=== PATIENT | male | born 1970 | race Caucasian/White ===

== ENCOUNTER 2017-08-04 13:50 | Emergency (ER) | payer OTHER ==
--- NOTE | 2017-08-04 16:27 | ED Physician Documentation ---
History of Present Illness - Stated complaint Stated Complaint: L LEG CRAMPING/L ANKLE TENDERNESS - Chief complaint Chief Complaint: Ext Problem - History obtained from History obtained from: Patient - History of Present Illness Timing: How many days ago (3) - Additonal information Additional information: 47-year-old male noticed about 3 days ago the swelling to his left ankle. Swelling is over the left medial aspect of the ankle and he did not injure his ankle that he is aware. He is concerned about DVT as he has had a similar presentation with a DVT in the right side about 2 years ago. That precipitant was sinus surgery. He does not have any specifics precipitant today for a DVT. The only thing he can think of different than his usual as he is changed insoles in his shoes. He has also had a recent increase in his prednisone with some plantar fasciitis. Review of Systems Constitutional: denies: Fever Eyes: denies: Decreased vision Ears: denies: Ear pain Nose: denies: Congestion Throat: denies: Sore throat Cardiac: denies: Chest pain / pressure Respiratory: denies: Dyspnea, Cough GI: denies: Abdominal Pain, Nausea, Vomiting : denies: Dysuria, Frequency Skin: denies: Rash Musculoskeletal: reports: Extremity pain, Extremity swelling, Joint swelling, Pain with weight bearing. denies: Neck pain, Back pain Neurologic: denies: Generalized weakness, Focal weakness, Numbness PD PAST MEDICAL HISTORY - Past Medical History Past Medical History: Yes Respiratory: Asthma, Other Other Past Medical History: Chronic sinus disease - Past Surgical History Past Surgical History: Yes - Present Medications Home Medications: Ambulatory Orders Medication Instructions Recorded Confirmed Albuterol [Ventolin Hfa] 1 - 2 puffs PO Q4HR PRN 03/09/14 03/09/14 Fexofenadine [Ilsa] 180 mg PO DAILY 03/09/14 03/09/14 Itraconazole 1 tab CONNIE BID 03/09/14 03/09/14 Prednisone 2 tab PO DAILY 03/09/14 03/09/14 Amphoterisin 08/04/17 Budesonide 0.25 mg IH BID 08/04/17 08/04/17 Gentamicin Sulfate [Gentak] 5 ml OP 08/04/17 Rivaroxaban [Xarelto] 15 mg PO BID #42 tablet 08/04/17 - Allergies Allergies/Adverse Reactions: Allergies Allergy/AdvReac Type Severity Reaction Status Date / Time shellfish derived Allergy Respiratory Verified 08/04/17 14:17 - Social History Does the pt smoke?: No Smoking Status: Never smoker Does the pt drink ETOH?: No Does the pt have substance abuse?: No - Immunizations Immunizations are current?: Yes Immunizations: TDAP current <10years PD ED PE NORMAL - Vitals Vital signs reviewed: Yes (hypertensive) - General General: No acute distress, Well developed/nourished - HEENT HEENT: Atraumatic, PERRL, EOMI - Respiratory Respiratory: No respiratory distress - Derm Derm: Normal color, Warm and dry, No rash - Extremities Extremities: No deformity, Other (There is some mild swelling to the calf medially on the left side. The area is vaugley tender. ) - Neuro Neuro: No motor deficit, No sensory deficit Eye Opening: Spontaneous Motor: Obeys Commands Verbal: Oriented GCS Score: 15 - Psych Psych: Normal mood, Normal affect Results - Vitals Vitals: Vital Signs - 24 hr 08/04/17 14:12 Temperature 36.6 C Heart Rate 67 Respiratory 16 Rate Blood Pressure 134/90 H O2 Saturation 97 Oxygen O2 Source Room air - Labs Labs: Laboratory Tests 08/04/17 15:59 POC Whole Bld Glucose 103 H - Rads (name of study) venous doppler Radiology: Prelim report reviewed (Impression: No flow and noncompressible, mid to distal posterior tibial veins, compatible with calf DVT. Otherwise no evidence for deep venous thrombosis.), EMP read indepedently, See rad report PD MEDICAL DECISION MAKING - ED course Complexity details: reviewed results, re-evaluated patient, considered differential, d/w patient ED course: 47-year-old male with symptomatic left lower extremity distal DVT has had prior DVT requiring anticoagulation. That DVT was thought to be related to the insult of surgery. Today this DVT appears unprovoked. I discussed with the patient the importance of determining whether this is truly unprovoked and I have asked the patient to follow-up with hematology to consider lifetime anticoagulation. Today and here he is administered Xarelto 15 mg orally and we will put him on 15 twice daily for the first 3 weeks. Departure - Departure Disposition: 01 Home, Self Care Clinical Impression: Deep vein thrombosis Qualifiers: DVT location: lower extremity Affected thrombotic vein of extremity: unspecified lower extremity distal vein Chronicity: acute Laterality: left Qualified Code(s): I82.4Z2 - Acute embolism and thrombosis of unspecified deep veins of left distal lower extremity Condition: Stable Instructions: Rivaroxaban oral tablets, ED DVT Follow-Up: Yaya Klein DO [Primary Care Provider] - Prescriptions: Rivaroxaban [Xarelto] 15 mg PO BID #42 tablet Comments: Stop your itraconazole while you are on the xarolto at the twice per day dose
--- NOTE | 2017-08-04 17:55 | Ultrasound Preliminary Report ---
Exam: US DUPLEX EXT VEINS LEFT IMPRESSION: No flow and noncompressible, mid to distal posterior tibial veins, compatible with calf D VT. Otherwise no evidence for deep venous thrombosis. [facility] SITE ID: [id number]
[2017-08-04] MEDS ORDERED: RIVAROXABAN 15 MG TABLET PO STA (17:57)
--- NOTE | 2017-08-04 17:57 | Ultrasound Report ---
EXAM: LEFT LOWER EXTREMITY VENOUS ULTRASOUND EXAM DATE: 08/04/2017 05:15 PM. CLINICAL HISTORY: Left ankle pain and swelling. Prior DVT. COMPARISON: None. TECHNIQUE: Real-time sonographic vascular imaging was performed by the bilingual branch manager through the lower extremity utilizing both color-flow and Doppler spectral analysis. Multiple business office representative static braxton ges were saved for review. FINDINGS: Common Femoral Vein (CFV): Normal. CFV-GSV Junction: Normal. Profunda Femoral Vein (PFV): Normal. Femoral Vein (FV) Prox: Normal. Femoral Vein (FV) Mid: Normal. Femoral Vein (FV) Dist: Normal. Popliteal Vein: Normal. Posterior Tibial Veins: Noncompressible and lack of flow, mid to distal. Normal proximal. Peroneal Veins: Normal. Contralateral Side CFV: Normal. Other: None. IMPRESSION: No flow and noncompressible, mid to distal posterior tibial veins, compatible with calf D VT. Otherwise no evidence for deep venous thrombosis. [facility] Referring Provider Line: [phone] SITE ID: [id number]
[2017-08-04 18:34] VITALS: BP 139/96
== END 2017-08-04 18:33 | disposition home or self-care (01) ==
LOC: ED 13:50
DX: I82.4Z2 Acute embolism and thrombosis of unspecified deep veins of left distal lower extremity (principal); Z86.718 Personal history of other venous thrombosis and embolism
CPT/HCPCS: 93971; 99283; 99284; A9270

== ENCOUNTER 2017-08-07 11:01 | Emergency (ER) | payer OTHER ==
[2017-08-07 11:11] VITALS: BP 143/90
[2017-08-07 11:50] LABS: BASOPHILS % (AUTO) 0.3 %; EOSINOPHILS # (AUTO) 0.1 10^3/uL (0.0-0.7); EOSINOPHILS % (AUTO) 1.2 %; HCT - HEMATOCRIT 50.5 % (42.0-52.0); HGB - HEMOGLOBIN 17.3 g/dL (14.0-18.0); LYMPHOCYTES % (AUTO) 10.9 %; MEAN CORPUSCULAR HEMOGLOBIN 33.9 pg (27.0-31.0); MEAN CORPUSCULAR HGB CONC 34.2 g/dL (32.0-36.0); MEAN CORPUSCULAR VOLUME 99.1 fL (80.0-94.0); MEAN PLATELET VOLUME 8.5 fL (7.4-11.4); MONOCYTES # (AUTO) 0.6 10^3/uL (0.0-1.0); MONOCYTES % (AUTO) 6.5 %; NEUTROPHILS # (AUTO) 7.5 10^3/uL (1.5-6.6); NEUTROPHILS % (AUTO) 81.1 %; NUCLEATED RED BLOOD CELLS AUTO 0.1 /100WBC; RED CELL DISTRIBUTION WIDTH 13.2 % (12.0-15.0); UNCORRECTED WHITE BLOOD COUNT 9.3 x10^3/uL; WHITE BLOOD COUNT 9.3 x10^3/uL (4.8-10.8)
[2017-08-07 11:58] LABS: CALCIUM 9.2 mg/dL (8.5-10.3); CREATININE 1.1 mg/dL (0.6-1.2); POTASSIUM 3.8 mmol/L (3.5-5.0)
[2017-08-07 12:19] LABS: INR 1.6 (0.8-1.2); PT - PROTHROMBIN TIME 17.5 secs (9.9-12.6)
[2017-08-07 12:28] LABS: PARTIAL THROMBOPLASTIN TIME 32.5 secs (24.9-33.3)
--- NOTE | 2017-08-07 13:50 | ED Physician Documentation ---
PD HPI GI BLEED - Stated complaint Stated Complaint: BLOOD IN STOOL - Chief complaint Chief Complaint: Abd Pain - History obtained from History obtained from: Patient (Pt states that he is on Xaralto for treatment of a recent dx of LLE DVT (around his ankle) he reports that for the past couple days he has had diarrhea and bright red blood and some dark stools. He called his PCM who told him to come to the ER.) - History of Present Illness Timing - onset: Yesterday Review of Systems Constitutional: denies: Fever, Chills Throat: denies: Dental pain / toothache, Sore throat Cardiac: denies: Chest pain / pressure, Palpitations, Pedal edema Respiratory: denies: Cough GI: reports: Diarrhea, Bloody / black stool. denies: Abdominal Pain, Nausea, Vomiting, Constipation : denies: Dysuria, Frequency Skin: denies: Rash, Lesions, Laceration (s) Musculoskeletal: denies: Back pain Neurologic: denies: Generalized weakness, Difficulty speaking PD PAST MEDICAL HISTORY - Past Medical History Past Medical History: Yes Respiratory: Asthma, Other - Past Surgical History Past Surgical History: Yes - Present Medications Home Medications: Ambulatory Orders Medication Instructions Recorded Confirmed Albuterol [Ventolin Hfa] 1 - 2 puffs PO Q4HR PRN 03/09/14 03/09/14 Fexofenadine [Ilsa] 180 mg PO DAILY 03/09/14 03/09/14 Itraconazole 1 tab CONNIE BID 03/09/14 03/09/14 Prednisone 2 tab PO DAILY 03/09/14 03/09/14 Amphoterisin 08/04/17 Budesonide 0.25 mg IH BID 08/04/17 08/04/17 Gentamicin Sulfate [Gentak] 5 ml OP 08/04/17 Rivaroxaban [Xarelto] 15 mg PO BID #42 tablet 08/04/17 Esomeprazole Magnesium [Nexium] 10 mg PO DAILY #30 suspdr.pkt 08/07/17 - Allergies Allergies/Adverse Reactions: Allergies Allergy/AdvReac Type Severity Reaction Status Date / Time shellfish derived Allergy Respiratory Verified 08/07/17 11:11 - Social History Does the pt smoke?: No Smoking Status: Never smoker Does the pt drink ETOH?: No Does the pt have substance abuse?: No - Immunizations Immunizations are current?: Yes Immunizations: TDAP current <10years - POLST Patient has POLST: No PD ED PE NORMAL - Vitals Vital signs reviewed: Yes - General General: Alert and oriented X 3 - Cardiac Cardiac: RRR, No murmur - Respiratory Respiratory: No respiratory distress, Clear bilaterally - Abdomen Abdomen: Normal bowel sounds, Soft, Non tender, Non distended - Rectal Rectal: Other (Heme occult pos with control postitive) - Derm Derm: Normal color, Warm and dry, No rash - Extremities Extremities: No deformity - Neuro Neuro: Alert and oriented X 3 Eye Opening: Spontaneous Motor: Obeys Commands Verbal: Oriented GCS Score: 15 - Psych Psych: Normal mood, Normal affect Results - Vitals Vitals: Vital Signs - 24 hr 08/07/17 11:08 Temperature 36.8 C Heart Rate 70 Respiratory 20 Rate Blood Pressure 143/90 H O2 Saturation 100 Oxygen O2 Source Room air - Labs Labs: Laboratory Tests 08/07/17 08/07/17 08/07/17 11:38 11:38 11:38 WBC 9.3 RBC 5.10 Hgb 17.3 Hct 50.5 MCV 99.1 H MCH 33.9 H MCHC 34.2 RDW 13.2 Plt Count 157 MPV 8.5 Neut # 7.5 H Lymph # 1.0 L [place] # 0.6 Eos # 0.1 Baso # 0.0 Absolute Nucleated RBC 0.01 Nucleated RBC % 0.1 PT 17.5 H INR 1.6 H APTT 32.5 Sodium 135 Potassium 3.8 Chloride 101 Carbon Dioxide 26 Anion Gap 8.0 BUN 12 Creatinine 1.1 Estimated GFR (MDRD) 71 L Glucose 111 H Calcium 9.2 PD MEDICAL DECISION MAKING - ED course Complexity details: d/w patient ED course: Pt on Xaralto for treatment of a distal DVT. He is having rectal bleeding that he is asymptomatic from other than the blood in the stool. We discussed his options to include stopping the Xaralto to prevent further bleeding and possible increase in bleeding or to continue the medication and continued bleeding. We discussed that stopping the medication may cause the DVT to get worse. he expressed understanding. Will stop the medication and start on PPI and will have him follow up with his PCM. Departure - Departure Disposition: 01 Home, Self Care Clinical Impression: Rectal bleeding Deep vein thrombosis Qualifiers: DVT location: lower extremity Affected thrombotic vein of extremity: other lower extremity vein Chronicity: acute Laterality: left Qualified Code(s): I82.492 - Acute embolism and thrombosis of other specified deep vein of left lower extremity Condition: Good Instructions: ED Hematochezia Stable Follow-Up: Yaya Klein DO [Primary Care Provider] - Prescriptions: Esomeprazole Magnesium [Nexium] 10 mg PO DAILY #30 suspdr.pkt Comments: Stop the Xaralto and call your primary care provider for a follow up next week. Start the new medication today. Return to the ER for any new or worsening symptoms or continued bleeding.
== END 2017-08-07 14:00 | disposition home or self-care (01) ==
LOC: ED 11:01
DX: K92.1 Melena (principal); I82.492 Acute embolism and thrombosis of other specified deep vein of left lower extremity; Z79.01 Long term (current) use of anticoagulants; J45.909 Unspecified asthma, uncomplicated
CPT/HCPCS: 36415; 80048; 85025; 85610; 85730; 99283

== ENCOUNTER 2017-11-23 11:31 | Emergency (ER) | payer OTHER ==
--- NOTE | 2017-11-23 12:42 | XRAY Preliminary Report ---
Exam: XR CHEST 2 VIEW X-RAY IMPRESSION: Bilateral central airway thickening can be seen in the setting of bronchitis, acute or ch ronic. Reactive airways disease can have this appearance as well. No focal lung parenchymal consolida tion is seen to suggest superimposed pneumonia. [facility] SITE ID: [id number]
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
--- NOTE | 2017-11-23 13:25 | ED Physician Documentation ---
PD HPI URI - Stated complaint Stated Complaint: EYE REDNESS - Chief complaint Chief Complaint: General - History obtained from History obtained from: Patient - History of Present Illness Timing - onset: How many days ago (few) Timing duration: Days Timing details: Gradual onset (has had cough and nasal congestion with sinus drainage for few days, and now with both eyes feeling "on fire" with redness and discharge.) Associated symptoms: Nasal congestion, Sinus pain, Dry cough. No: Swollen nodes , Productive cough Contributing factors: Travel (returned from [facility] just yesterday). No: Sick contact, Immunocompromised Similar symptoms before: Has not had sx before Recently seen: Not recently seen Review of Systems Constitutional: reports: Myalgias. denies: Fever, Chills Eyes: reports: Discharge, Irritation. denies: Decreased vision, Photophobia Ears: denies: Ear pain Nose: reports: Congestion, Sinus pressure / pain Throat: denies: Sore throat Respiratory: reports: Cough GI: denies: Nausea, Vomiting, Diarrhea Skin: denies: Rash, Lesions PD PAST MEDICAL HISTORY - Past Medical History Respiratory: Asthma - Past Surgical History Past Surgical History: Yes - Present Medications Home Medications: Ambulatory Orders Medication Instructions Recorded Confirmed Albuterol [Ventolin Hfa] 1 - 2 puffs PO Q4HR PRN 03/09/14 03/09/14 Fexofenadine [Ilsa] 180 mg PO DAILY 03/09/14 03/09/14 Prednisone 2 tab PO DAILY 03/09/14 03/09/14 Budesonide 0.25 mg IH BID 08/04/17 08/04/17 Pantoprazole [Protonix] 1 tab PO DAILY 10/28/17 10/28/17 Warfarin Sodium [Coumadin] 7 mg PO DAILY 10/28/17 10/28/17 Albuterol Sulf [Ventolin Hfa 1 - 2 puffs INH Q4HR PRN #1 inhaler 11/23/17 Inhaler] Cephalexin [Keflex] 500 mg PO TID #21 capsule 11/23/17 Dexamethasone [Decadron] 4 mg PO DAILY #5 tablet 11/23/17 Fluconazole [Diflucan] 150 mg PO ONCE #2 tablet 11/23/17 Sulfacetamide 10% Ophth Drops 2 drops OPTH Q3H #1 bottle 11/23/17 [Sulfamide 10% Ophth Drops] - Allergies Allergies/Adverse Reactions: Allergies Allergy/AdvReac Type Severity Reaction Status Date / Time shellfish derived Allergy Respiratory Verified 08/07/17 11:11 - Social History Does the pt smoke?: No Smoking Status: Never smoker Does the pt drink ETOH?: Yes Does the pt have substance abuse?: No - Immunizations Immunizations are current?: No Immunizations: TDAP current <10years - POLST Patient has POLST: No PD ED PE NORMAL - Vitals Vital signs reviewed: Yes - General General: Alert and oriented X 3, Well developed/nourished - HEENT HEENT: PERRL, EOMI (with conjunctival redness and swelling both sides, with discharge thicker yellow. ), Pharynx benign, Other (sinus tenderness to percussion both maxillary sides. ) - Neck Neck: Supple, no meningeal sign, No adenopathy - Cardiac Cardiac: RRR, No murmur - Respiratory Respiratory: Clear bilaterally - Abdomen Abdomen: Soft, Non tender - Derm Derm: Normal color, Warm and dry, No rash Results - Vitals Vitals: Oxygen O2 Source Room air - Labs Labs: Laboratory Tests 11/23/17 13:59 Whole Blood INR 1.8 H PD MEDICAL DECISION MAKING - ED course Complexity details: considered differential (likely sinus infection extending up to eyes, consider bacterial vs. viral. Has very purulent nasal and eye drainage. ), d/w patient Departure - Departure Disposition: 01 Home, Self Care Clinical Impression: Upper respiratory infection Qualifiers: URI type: unspecified URI Qualified Code(s): J06.9 - Acute upper respiratory infection, unspecified Conjunctivitis Qualifiers: Conjunctivitis type: acute Acute conjunctivitis type: unspecified Laterality: bilateral Qualified Code(s): H10.33 - Unspecified acute conjunctivitis, bilateral Condition: Stable Record reviewed to determine appropriate education?: Yes Instructions: ED Upper Resp Infec Abx Tx, ED Conjunctivitis Nonspecific Follow-Up: Yaya Klein DO [Primary Care Provider] - Prescriptions: Albuterol Sulf [Ventolin Hfa Inhaler] 1 - 2 puffs INH Q4HR PRN #1 inhaler PRN Reason: Shortness Of Air/Wheezing Cephalexin [Keflex] 500 mg PO TID #21 capsule Dexamethasone [Decadron] 4 mg PO DAILY #5 tablet Fluconazole [Diflucan] 150 mg PO ONCE #2 tablet Sulfacetamide 10% Ophth Drops [Sulfamide 10% Ophth Drops] 2 drops OPTH Q3H #1 bottle Comments: This may potentially be all viral with the cough congestion and eyes red and irritated. Several types of viruses like to include the eyes as well. However would be concern for bacterial infection of the sinuses that could do this as well. Use Keflex antibiotic 3 times a day for a week and also sulfacetamide antibiotic eyedrops in both eyes every 3 the hours while awake for the next few days. Use albuterol inhaler 2 puffs 4 times a day for the next 7-10 days. Decadron steroid anti-inflammatory will help the irritation from the infection. Because of your tendency towards fungal infection as well, I would have you take an antifungal tablet once today and again repeated in for 5 days to treat that potential as well and also since that might blossom in response to the antibiotics. Recheck if not improving over the next few days. Continue your other usual medications. Discharge Date/Time: 11/23/17 14:19
[2017-11-23 14:06] VITALS: BP 143/86
== END 2017-11-23 14:19 | disposition home or self-care (01) ==
LOC: ED 11:31
DX: J06.9 Acute upper respiratory infection, unspecified (principal); H10.33 Unspecified acute conjunctivitis, bilateral; Z79.01 Long term (current) use of anticoagulants
CPT/HCPCS: 71046; 85610; 99283

== ENCOUNTER 2018-02-11 16:39 | Outpatient (CLI) | payer OTHER ==
--- NOTE | 2018-02-12 08:33 | Ultrasound Report ---
EXAM: LEFT LOWER EXTREMITY VENOUS ULTRASOUND EXAM DATE: 02/11/2018 06:12 PM. CLINICAL HISTORY: Left lower extremity deep venous thrombosis. COMPARISON: 08/04/2017. TECHNIQUE: Real-time sonographic vascular imaging was performed by the steamer operator through the lower extremity utilizing both color-flow and Doppler spectral analysis. Multiple account representative static braxton ges were saved for review. FINDINGS: Common Femoral Vein (CFV): Normal. CFV-GSV Junction: Normal. Profunda Femoral Vein (PFV): Normal. Femoral Vein (FV) Prox: Normal. Femoral Vein (FV) Mid: Normal. Femoral Vein (FV) Dist: Normal. Popliteal Vein: Normal. Posterior Tibial Veins: Normal. Previous calf vein thrombosis in this region appears resolved. Peroneal Veins: Normal. Contralateral Side CFV: Normal. Other: None. IMPRESSION: No evidence for deep venous thrombosis. [facility] Referring Provider Line: [phone] SITE ID: [id number]
== END 2018-02-11 16:40 | disposition home or self-care (01) ==
LOC: DI 16:39
PROVIDERS: ATTEND Internal Medicine
DX: I82.4Z2 Acute embolism and thrombosis of unspecified deep veins of left distal lower extremity (principal)

== ENCOUNTER 2019-01-21 12:58 | Outpatient (CLI) | payer OTHER ==
[2019-01-21] MEDS ORDERED: GADOBUTROL 15 MMOL/15 ML VIAL ONE (14:30)
[2019-01-21] MEDS ORDERED: GADOBUTROL 15 MMOL/15 ML VIAL IVP ONE (14:39)
--- NOTE | 2019-01-22 20:09 | MRI Report ---
Reason: GANGLION,LEFT HAND Procedure Date: 01/21/2019 Accession Number: [id number] / [id number] Procedure: MRI - Hand LT W/WO CPT Code: FULL RESULT: EXAM: LEFT HAND MRI WITHOUT AND WITH CONTRAST EXAM DATE: 01/21/2019 01:39 PM. CLINICAL HISTORY: Palpable "knot" at the base of the thumb. COMPARISON: None. TECHNIQUE: Multiplanar, multisequence T1-weighted and fluid-sensitive sequences of the hand before and after administration of intravenous contrast. IV contrast: . Other: None. FINDINGS: Image quality is degraded by patient motion Bones: There is mild first carpometacarpal osteoarthritis. Minimal first MCP osteoarthritis. No fracture or other acute osseous abnormality. Tendons: The visible flexor and extensor tendons are normal. Musculature: No edema or fatty atrophy. Other: There is a lobular homogeneously T2 hyperintense structure demonstrating faint peripheral enhancement along the ulnar margin of the mid to distal shaft of the first metacarpal consistent with a cyst, probably a ganglion cyst. It measures 1.6 x 1.1 x 0.9 cm in aggregate. The source for the cyst is difficult to definitively identify; however, there is a thin channel of fluid signal extending distally from the cyst to the first MCP joint which is felt to be the most likely source for the cyst. As the cyst abuts the extensor pollicis longus tendon, the extensor pollicis longus tendon sheath could also reflect the source for the cyst. The soft tissues elsewhere are normal. IMPRESSION: 1. 1.6 cm ganglion cyst along the ulnar margin of the mid to distal first metacarpal, probably originating from the first MCP joint and less likely originating from the extensor pollicis longus tendon sheath. 2. Mild first carpometacarpal and minimal first MCP osteoarthritis. [facility]
== END 2019-01-21 12:59 | disposition home or self-care (01) ==
LOC: DI 12:58
PROVIDERS: ATTEND Orthopaedic Surgery
DX: M67.442 Ganglion, left hand (principal); M18.12 Unilateral primary osteoarthritis of first carpometacarpal joint, left hand; M19.042 Primary osteoarthritis, left hand
CPT/HCPCS: 73220; A9585

== ENCOUNTER 2019-04-20 09:21 | Outpatient (CLI) | payer OTHER ==
[2019-04-20 09:55] LABS: ALBUMIN 4.4 g/dL (3.2-5.5); BILIRUBIN,DIRECT 0.1 mg/dL (0.1-0.5); BILIRUBIN,TOTAL 0.8 mg/dL (0.2-1.0)
== END 2019-04-20 09:22 | disposition home or self-care (01) ==
LOC: LAB 09:21
PROVIDERS: ATTEND Otolaryngology
DX: J32.9 Chronic sinusitis, unspecified (principal)
CPT/HCPCS: 36415; 80076

== ENCOUNTER 2021-12-20 15:04 | Outpatient (CLI) | payer OTHER ==
--- NOTE | 2021-12-20 16:28 | XRAY Report ---
PROCEDURE: Chest 2 View X-Ray INDICATIONS: ASTHMA, MODERATE PERSISTENT TECHNIQUE: 2 view(s) of the chest. COMPARISON: None. FINDINGS: Surgical changes and devices: None. Lungs and pleura: No pleural effusions or pneumothorax. Lungs are clear. Mediastinum: Mediastinal contours are normal. Heart size is normal. Bones and chest wall: No suspicious bony abnormalities. Soft tissues appear unremarkable. IMPRESSION: No acute cardiopulmonary process demonstrated radiographically. Reviewed by: Chun Astorga MD on 12/20/2021 4:27 PM PDT Approved by: Chun Astorga MD on 12/20/2021 4:27 PM PDT Station ID: [id number]
== END 2021-12-20 15:05 | disposition home or self-care (01) ==
LOC: DI 15:04
PROVIDERS: ATTEND Allergy & Immunology
DX: J45.40 Moderate persistent asthma, uncomplicated (principal)

== ENCOUNTER 2022-04-11 16:07 | Emergency (ER) | payer OTHER ==
[2022-04-11 16:33] VITALS: BP 133/70
[2022-04-11] MEDS ORDERED: TETANUS/DIPHTHERIA/PERTUSSIS 0.5 ML SYRINGE IM ONE (17:06)
--- NOTE | 2022-04-11 17:08 | ED Physician Documentation ---
PD HPI HEAD INJURY - Stated complaint Stated Complaint: HEAD INJ - Chief complaint Chief Complaint: Trauma Hd/Nk - History obtained from History obtained from: Patient - Additional information Additional information: 51-year-old gentleman with unknown tetanus status was at work to today and a pipe fell from about 2 to 3 feet and hit him in the left scientology. He had a wound that bled profusely and now has stopped. He had a moderate headache which is now mild. He feels queasy but has not thrown up. He is not anticoagulated. No loss of consciousness. Review of Systems Constitutional: reports: Reviewed and negative Throat: reports: Reviewed and negative Cardiac: reports: Reviewed and negative PD PAST MEDICAL HISTORY - Past Medical History Respiratory: Asthma - Past Surgical History Past Surgical History: Yes - Present Medications Home Medications: Ambulatory Orders Medication Instructions Recorded Confirmed Albuterol [Ventolin Hfa] 1 - 2 puffs PO Q4HR PRN 03/09/14 03/31/18 Fexofenadine [Ilsa] 180 mg PO DAILY 03/09/14 03/31/18 predniSONE [Prednisone] 2 tab PO DAILY 03/09/14 03/31/18 Budesonide 0.25 mg IH BID 08/04/17 03/31/18 Albuterol Sulf [Ventolin Hfa 1 - 2 puffs INH Q4HR PRN #1 inhaler 11/23/17 03/31/18 Inhaler] raNITIdine [Zantac] 1 tab PO DAILY 12/16/17 03/31/18 - Allergies Allergies/Adverse Reactions: Allergies Allergy/AdvReac Type Severity Reaction Status Date / Time shellfish derived Allergy Respiratory Verified 04/11/22 16:33 - Social History Does the pt smoke?: No Smoking Status: Never smoker Does the pt drink ETOH?: Yes Does the pt have substance abuse?: No - Immunizations Immunizations are current?: No Immunizations: TDAP current <10years - POLST Patient has POLST: No PD ED PE NORMAL - Vitals Vital signs reviewed: Yes - General General: Alert and oriented X 3, No acute distress - HEENT HEENT: PERRL, EOMI, Other (1 cm high left temporal 1 cm scalp laceration) - Neck Neck: No bony TTP - Neuro Neuro: Alert and oriented X 3, No motor deficit, No sensory deficit, Normal speech Eye Opening: Spontaneous Motor: Obeys Commands Verbal: Oriented GCS Score: 15 - Psych Psych: Normal mood, Normal affect Results - Vitals Vitals: Vital Signs - 24 hr 04/11/22 16:30 Temperature 36.9 C Heart Rate 76 Respiratory 16 Rate Blood Pressure 133/70 H O2 Saturation 96 Oxygen O2 Source Room air Procedures - Laceration (location) L scientology Length in cm: 1 Wound type: Linear Neurovascular status: Sensory intact, Motor intact, Vascular intact Wound preparation: Irrigated copiously NS Skin layer closure: Dermabond Other: Tetanus booster given PD MEDICAL DECISION MAKING - ED course ED course: 51-year-old gentleman with head injury and scalp laceration, laceration was closed with Dermabond as it was fairly small. He has only a mild headache, no vomiting, no altered mental status, and it has been 5 and half hours since the injury so I do not think CT scanning is necessary. We discussed it though and he is agreeable with the plan. Departure - Departure Disposition: 01 Home, Self Care Clinical Impression: Scalp laceration Condition: Good Record reviewed to determine appropriate education?: Yes Instructions: ED Laceration Facial Skin Glue, ED Head Injury Closed Comments: Given the timing, that its been 5 and half hours since the injury and lack of severe headache or abnormal neuro exam I do not think CT scanning is necessary at this juncture, that said please return for reevaluation if you develop significant headache, vomiting, or other new or worrisome symptoms.
== END 2022-04-11 17:17 | disposition home or self-care (01) ==
LOC: ED 16:07
DX: S01.01XA Laceration without foreign body of scalp, initial encounter (principal); W20.8XXA Other cause of strike by thrown, projected or falling object, initial encounter; Y99.0 Civilian activity done for income or pay; Z23 Encounter for immunization; Z71.85 Encounter for immunization safety counseling
CPT/HCPCS: 12011; 90471; 99283